=== PATIENT | female | born 1985 | race Caucasian/White ===

== ENCOUNTER 2016-11-11 23:12 | Emergency (ER) | payer MEDICAID ==
[~2016-11-11] VITALS: Ht 175.3 cm; Wt 66.1 kg
[2016-11-11 23:17] VITALS: BP 117/70; PULSE 60; RESP 18; TEMP 97.8; O2SAT 98
--- NOTE | 2016-11-11 23:46 | PD ---
HPI Chief Complaint: Bleeding Time Seen by Provider: 23:35 Travel History International Travel<30 days: No Contact w/Intl Traveler<30days: No History of Present Illness HPI Patient is a 31-year-old female presents emergency department for evaluation of rectal bleeding. Patient states that her boyfriend had anal sex 2 days ago, she states that did not hurt time. States that she had one episode earlier tonight. Denies any melena. She states that she noticed some streaking of blood in her stool today. Denies any weakness denies fatigue denies any presyncopal symptoms. Denies any pain with defecation. States never happened to her before. Denies any easy bleeding or easy bruising. [facility] Past Medical History Narrative Medical Bipolar disorder, MS. Past Surgical History Narrative Surgical Denies Family History Narrative Family History Denies Social History Alcohol Use: Yes Tobacco Use: Yes Allergies-Medications (Allergen,Severity, Reaction): Coded Allergies: Penicillin (Verified Allergy, Unknown, 11/11/16) Review of Systems Except as stated in HPI: all other systems reviewed are Neg Physical Exam Narrative GENERAL: [Well-developed well-nourished, no apparent distress. Patient was examined with female nurse work over rig operator present at all times. SKIN: Focused skin assessment warm/dry. No bruising or bleeding or laceration no wound. HEAD: Atraumatic. Normocephalic. EYES: Pupils equal and round. No scleral icterus. No injection or drainage. ENT: No nasal bleeding or discharge. Mucous membranes pink and moist. NECK: Trachea midline. No JVD. CARDIOVASCULAR: Regular rate and rhythm. No murmur appreciated. RESPIRATORY: No accessory muscle use. Clear to auscultation. Breath sounds equal bilaterally. GASTROINTESTINAL: Abdomen soft, non-tender, nondistended. Hepatic and splenic margins not palpable. RECTAL EXAM: No hemorrhoids no anal fissures, nontender exam, scant stool in the rectal vault, Hemoccult negative. MUSCULOSKELETAL: No obvious deformities. No clubbing. No cyanosis. No edema. NEUROLOGICAL: Awake and alert. No obvious cranial nerve deficits. Motor grossly within normal limits. Normal speech. PSYCHIATRIC: Appropriate mood and affect; insight and judgment normal. Data Data Last Documented VS Vital Signs Date Time Temp Pulse Resp B/P Pulse Ox O2 Delivery O2 Flow Rate FiO2 11/11/16 23:43 20 98 7/6/17 23:17 97.8 60 117/70 [facility] Medical Decision Making Medical Screen Exam Complete: Yes Emergency Medical Condition: Yes Differential Diagnosis Anal fissure, hemorrhoid, rectal bleeding, pneumonia unlikely, bleeding disorder unlikely. Narrative Course Patient was roomed in emergency department, has reassuring physical exam and vital signs. No signs of rectal trauma. Her boyfriend and is accompanying her and she declines to speak to me in private. She appears well and in no obvious distress. I have very low index suspicion for anemia or bleeding disorder this time. I offered to check the patient's routine labs but I think that she is stable to go home with expectant management at this time and I have carefully counseled her on return to ED criteria. She would like to go home currently. Discussed calling her primary care physician Dr. Roman in the morning. Diagnosis Primary Impression: Rectal bleeding Additional Instructions: Refrain from anal sex for at least the next 2 weeks. If you have any increased bleeding feelings of weakness or going to pass out return to emergency department for further evaluation. Follow-up with Dr. Roman tomorrow by phone. Disposition: 01 DISCHARGE HOME Condition: Stable Rony Armendariz MD Nov 11, 2016 23:46
[2016-11-12] VITALS: BP 108/76
== END 2016-11-12 00:40 | disposition home or self-care (01) ==
LOC: PHED 23:12
DX: K62.5 Hemorrhage of anus and rectum (principal)
CPT/HCPCS: 99284